=== PATIENT | male | born 1995 | race Caucasian/White ===

== ENCOUNTER 2019-03-23 11:36 | Emergency (ER) | payer OTHER ==
[2019-03-23 13:54] LABS: Urine Appearance Clear; Urine Bacteria Absent (Absent); Urine Bilirubin Negative (Negative); Urine Blood 3+ (Negative); Urine Color Yellow; Urine Glucose Negative (Negative); Urine Ketones Negative (Negative); Urine Nitrite Negative (Negative); Urine Protein Negative (Negative); Urine Red Blood Cell 3+(>10/hpf) (Absent); Urine Specific Gravity 1.016 (1.010-1.030); Urine Squamous Epithelial Cell Present (Absent); Urine Urobilinogen Negative (Negative); Urine White Blood Cell Trace(0-5/hpf) (Absent)
[2019-03-23] MEDS ORDERED: NS 0.9% 1000 ML** 1,000 ML IV ONE (13:59)
[2019-03-23 14:46] LABS: ABS Lymphocytes 0.9 10^3/ul (1.0-4.8); ABS Monocytes 0.6 10^3/ul (0-0.8); ABS Neutrophils 7.3 10^3/ul (1.5-7.7); Eosinophil % 0.4 %; Hematocrit 36 % (42-52); Hemoglobin 11.8 g/dL (14.0-18.0); Lymphocyte % 9.7 %; Mean Corpuscular HGB Conc 33 g/dL (31-36); Mean Corpuscular Hemoglobin 26 pg (27-31); Mean Corpuscular Volume 77 fL (80-94); Mean Platelet Volume 9.9 fL (7.4-10.4); Nucleated Red Blood Cells % 0.1; Platelet Count 159 10^3/uL (150-450); Red Cell Distribution Width 16 % (10-15); White Blood Count 8.9 10^3/uL (3.5-10.8)
[2019-03-23 14:47] LABS: Albumin 4.6 g/dL (3.2-5.2); Albumin/Globulin Ratio 1.6 (1-3); BUN/Creatinine Ratio 14.7 (8-20); Calcium 9.9 mg/dL (8.6-10.3); EGFR African American 99.7 (>60); EGFR Non-African American 82.4 (>60); Globulin 2.8 g/dL (2-4); Potassium 4.7 mmol/L (3.5-5.0); Total Bilirubin 0.5 mg/dL (0.2-1.0); Total Protein 7.4 g/dL (6.4-8.9)
[2019-03-23] MEDS ORDERED: Ondansetron INJ* 2 MG/ML VIAL IV ONE (15:29)
[2019-03-23] MEDS ORDERED: Ketorolac INJ* 30 MG/ML 1 ML VIAL IV PUSH ONE (15:29)
--- NOTE | 2019-03-23 15:41 | ED ---
GI/ HPI - HPI Summary HPI Summary: 24 year male presents with flank pain today. He states pain starts in flank right-sided radiates to the front. He admits to dysuria urgency or frequency. Denies any hematuria. Does have family history of stones but no personal history of kidney stones. He states the pain was severe but it became better. He states now only has 1 out of 10. He did not take anything for his pain. Denies chest or shortness breath. No recent travel. Nonsmoker. No family history of PEs. He admits to nausea but no vomiting. He admits to some diarrhea but no constipation. No fevers. - History of Current Complaint Chief Complaint: EDFlankPain Time Seen by Provider: 03/23/19 15:21 Stated Complaint: SEVERE RT SIDED ABD PAIN PER PT Pain Intensity: 2 - Allergy/Home Medications Allergies/Adverse Reactions: Allergies Allergy/AdvReac Type Severity Reaction Status Date / Time No Known Allergies Allergy Verified 03/23/19 11:39 PMH/Surg Hx/FS Hx/Imm Hx Endocrine/Hematology History: Denies: Hx Anticoagulant Therapy Respiratory History: Denies: Hx Asthma Infectious Disease History: No Infectious Disease History: Denies: Traveled Outside the [place] in Last 30 Days - Family History Known Family History: Positive: Non-Contributory - Social History Alcohol Use: None Substance Use Type: Reports: None Smoking Status (MU): Never Smoked Tobacco Review of Systems Negative: Fever Negative: Chest Pain Negative: Shortness Of Breath Positive: Nausea. Negative: Abdominal Pain, Vomiting, Diarrhea Positive: dysuria, flank pain All Other Systems Reviewed And Are Negative: Yes Physical Exam Triage Information Reviewed: Yes Vital Signs On Initial Exam: Initial Vitals Temp Pulse Resp BP Pulse Ox 98.5 F 75 20 167/112 99 03/23/19 11:37 03/23/19 11:37 03/23/19 11:37 03/23/19 11:37 03/23/19 11:37 Vital Signs Reviewed: Yes Appearance: Positive: Well-Appearing Skin: Positive: Warm, Dry Head/Face: Positive: Normal Head/Face Inspection Eyes: Positive: Normal, Conjunctiva Clear ENT: Positive: Pharynx normal Respiratory/Lung Sounds: Positive: Clear to Auscultation, Breath Sounds Present Cardiovascular: Positive: Normal, RRR Abdomen Description: Positive: Soft, CVA Tenderness (R), Other: - tenderness right side abd. Negative: CVA Tenderness (L) Bowel Sounds: Positive: Present Musculoskeletal: Positive: Normal Neurological: Positive: Normal Psychiatric: Positive: Normal Diagnostics - Vital Signs Vital Signs Temp Pulse Resp BP Pulse Ox 03/23/19 15:22 71 151/80 98 03/23/19 15:21 70 99 03/23/19 14:40 98.9 F 69 18 138/86 98 03/23/19 12:52 98.2 F 88 20 166/117 99 03/23/19 11:37 98.5 F 75 20 167/112 99 - Laboratory Lab Results: Lab Results 03/23/19 03/23/19 03/23/19 Range/Units 13:35 14:20 14:20 WBC 8.9 (3.5-10.8) 10^3/uL RBC 4.60 (4.18-5.48) 10^6 /uL Hgb 11.8 L (14.0-18.0) g/dL Hct 36 L (42-52) % MCV 77 L (80-94) fL MCH 26 L (27-31) pg MCHC 33 (31-36) g/dL RDW 16 H (10-15) % Plt Count 159 (150-450) 10^3/uL MPV 9.9 (7.4-10.4) fL Neut % (Auto) 82.5 % Lymph % (Auto) 9.7 % [place] % (Auto) 7.0 % Eos % (Auto) 0.4 % Baso % (Auto) 0.4 % Absolute Neuts (auto) 7.3 (1.5-7.7) 10^3/ul Absolute Lymphs (auto) 0.9 L (1.0-4.8) 10^3/ul Absolute Monos (auto) 0.6 (0-0.8) 10^3/ul Absolute Eos (auto) 0.0 (0-0.6) 10^3/ul Absolute Basos (auto) 0.0 (0-0.2) 10^3/ul Absolute Nucleated RBC 0.0 10^3/ul Nucleated RBC % 0.1 Sodium 137 (135-145) mmol/L Potassium 4.7 (3.5-5.0) mmol/L Chloride 104 (101-111) mmol/L Carbon Dioxide 27 (22-32) mmol/L Anion Gap 6 (2-11) mmol/L BUN 16 (6-24) mg/dL Creatinine 1.09 (0.67-1.17) mg/dL Est GFR ( Amer) 99.7 (>60) Est GFR (Non-Af Amer) 82.4 (>60) BUN/Creatinine Ratio 14.7 (8-20) Glucose 102 H (70-100) mg/dL Calcium 9.9 (8.6-10.3) mg/dL Total Bilirubin 0.50 (0.2-1.0) mg/dL AST 25 (13-39) U/L ALT 21 (7-52) U/L Alkaline Phosphatase 34 (34-104) U/L Total Protein 7.4 (6.4-8.9) g/dL Albumin 4.6 (3.2-5.2) g/dL Globulin 2.8 (2-4) g/dL Albumin/Globulin Ratio 1.6 (1-3) Urine Color Yellow Urine Appearance Clear Urine pH 6.0 (5-9) Ur Specific [place] 1.016 (1.010-1.030) Urine Protein Negative (Negative) Urine Ketones Negative (Negative) Urine Blood 3+ A (Negative) Urine Nitrate Negative (Negative) Urine Bilirubin Negative (Negative) Urine Urobilinogen Negative (Negative) Ur Leukocyte Esterase Negative (Negative) Urine WBC (Auto) Trace(0-5/hpf) (Absent) Urine RBC (Auto) 3+(>10/hpf) A (Absent) Ur Squamous Epith Cells Present A (Absent) Urine Bacteria Absent (Absent) Urine Glucose Negative (Negative) Result Diagrams: 03/23/19 14:20 03/23/19 14:20 Lab Statement: Any lab studies that have been ordered have been reviewed, and results considered in the medical decision making process. - CT abd CT Interpretation Completed By: Radiologist Summary of CT Findings: IMPRESSION: #. Negative for urolithiasis or hydronephrosis. #. A small appendicolith is noted within the lumen of the upper normal 0.6 cm diameter. appendix. No periappendiceal inflammatory change evident. Very early appendicitis is not. excluded in setting of acute RIGHT abdominal pain. Correlate with clinical assessment and. laboratory values. Re-Evaluation - Re-Evaluation First Eval Re-Evaluation Time: 16:27 Comment: nontender right lower quadrant GIGU Course/Dx - Course Course Of Treatment: 24 year male presents with flank pain today. He states pain starts in flank right-sided radiates to the front. He admits to dysuria urgency or frequency. Denies any hematuria. Does have family history of stones but no personal history of kidney stones. He states the pain was severe but it became better. He states now only has 1 out of 10. He did not take anything for his pain. Denies chest or shortness breath. No recent travel. Nonsmoker. No family history of PEs. He admits to nausea but no vomiting. He admits to some diarrhea but no constipation. No fevers. On exam has mild tenderness of right flank. Mild tenderness in right upper quadrant. Nontender right lower quadrant. wbc normal. Urine shows hematuria. CT shows no stone potential early appendicitis. Nontender RLQ so like suspicious of appendicitis. suspect kidney stone that passed. told establish care with primary. patient understand and agrees with plan. - Diagnoses Differential Diagnoses - Male: Pyelonephritis, Ureteral Calculi, Urinary Tract Infection Provider Diagnoses: Kidney stones Discharge - Sign-Out/Discharge Documenting (check all that apply): Patient Departure Patient Received Moderate/Deep Sedation with Procedure: No - Discharge Plan Condition: Good Disposition: HOME Patient Education Materials: Kidney Stones (ED) Referrals: [facility] [Outside] Additional Instructions: take tyenlol or ibuprofen every 6 hours for pain drink plenty of fluids Return to ED if develop persistent pain in RLQ, fever, or any new or worsening symptoms - Billing Disposition and Condition Condition: GOOD Disposition: Home
[2019-03-23 16:40] VITALS: BP 137/69
== END 2019-03-23 16:43 | disposition home or self-care (01) ==
LOC: ED 11:36
DX: N20.0 Calculus of kidney (principal)
CPT/HCPCS: 36415; 74176; 80053; 81003; 81015; 85025; 87086; 96361; 96374; 96375; 99282; J1885; J2405